=== PATIENT | female | born 1975 | race Caucasian/White ===

== ENCOUNTER → 2020-04-27 16:00 | Outpatient (CLI) | payer BC, SELFPAY | PROVIDERS: PCP Family Medicine; Visit Provider Nurse Practitioner Family | DX: Z20.822 Contact with and (suspected) exposure to COVID-19 (principal) | CPT/HCPCS: 87633; 87635; U0002 ==

== ENCOUNTER → 2021-01-28 | Outpatient (CLI) | payer BC, SELFPAY ==
[2021-02-02 13:19] LABS: HPV APTIMA, High Risk Negative (Negative)
== END | disposition home or self-care (01) ==
LOC: LABSPEC 10:45
PROVIDERS: PCP Family Medicine; Referring Provider Obstetrics & Gynecology; Visit Provider Obstetrics & Gynecology
DX: Z12.4 Encounter for screening for malignant neoplasm of cervix (principal); R35.0 Frequency of micturition
CPT/HCPCS: 87086; 87088; 87624; 88175; G0145

== ENCOUNTER 2021-02-23 11:14 | Outpatient (CLI) | payer BC, SELFPAY ==
--- NOTE | 2021-02-23 11:21 | BI_ITS ---
MAMMOGRAPHY - BILATERAL SCREENING REASON FOR EXAM: Female, 46 years old. Routine annual screening examination. PERTINENT HISTORY: Non-contributory. TECHNIQUE: Digital bilateral breast li (3D mammographic acquisition) in the CC and MLO projections. 2-D mediolateral oblique (MLO) and craniocaudad (CC) views of both breasts were obtained. CAD: Full Field Digital Mammography with Computer Added Detection was performed. COMPARISON: None. Baseline examination. FINDINGS: Breast Composition: The breasts are heterogeneously dense, which may obscure small masses. There is a 2.3 cm x 1.9 cm well-defined nodule in the slightly upper deep medial aspect of the left breast. I also suspect to small well-defined nodules in the deep upper lateral aspect of the left breast. Correlation with ultrasound is recommended. No other significant abnormalities are identified. BI/SCRN MAMM (CAD)W/LI BILAT IMPRESSION: Well-defined nodules in the left breast as described. Correlation with ultrasound is recommended. ASSESSMENT CATEGORY: BIRADS Category 0: Incomplete. Need additional imaging evaluation. A letter regarding these results will be sent to the patient by the facility within 30 days. Approximately 10% of breast cancers are not detected by mammography. A normal mammogram should not delay biopsy of a clinically suspicious abnormality. [id number] Electronically Signed: Jet Brown MD at 12:14 EST , Service support ,
== END 2021-02-23 23:59 | disposition short-term general hospital (02) ==
LOC: OPBI 11:18
PROVIDERS: PCP Family Medicine; Referring Provider Obstetrics & Gynecology; Visit Provider Obstetrics & Gynecology
DX: Z12.31 Encounter for screening mammogram for malignant neoplasm of breast (principal); N63.20 Unspecified lump in the left breast, unspecified quadrant
CPT/HCPCS: 77063; 77067

== ENCOUNTER 2021-02-25 14:54 | Outpatient (CLI) | payer BC, SELFPAY ==
--- NOTE | 2021-02-25 14:56 | US_ITS ---
STUDY: ULTRASOUND BREAST - LEFT REASON FOR EXAM: Female, 46 years old. Abnormal screening mammogram. TECHNIQUE: Axial and longitudinal images of the LEFT breast were performed with a high resolution ultrasound transducer. # OF IMAGES: [id number] COMPARISON: Comparison is made with prior mammogram dated 02/23/2021. FINDINGS: LEFT Breast: There is a 1.7 cm x 1.9 cm x 1 cm cyst at the 11 o''clock position of the breast. This also evidence of a 1.2 cm x 1.5 cm x 1 cm cyst at the 1 o''clock position of the breast. US/Breast Limited Unilateral IMPRESSION: The mammographic abnormality corresponds to cysts as described. ASSESSMENT CATEGORY: BIRADS Category 2: Benign. A letter regarding these results will be sent to the patient by the facility within 30 days. Electronically Signed: Jet Brown MD at 8:39 EST , Service support ,
== END 2021-02-25 23:59 | disposition short-term general hospital (02) ==
LOC: OPUS 14:55
PROVIDERS: PCP Family Medicine; Visit Provider Obstetrics & Gynecology
DX: N63.20 Unspecified lump in the left breast, unspecified quadrant (principal)
CPT/HCPCS: 76642

== ENCOUNTER 2021-03-16 15:48 | Outpatient (CLI) | payer BC, SELFPAY ==
--- NOTE | 2021-03-16 15:54 | US_ITS ---
STUDY: ULTRASOUND OF THE FEMALE PELVIS - COMPLETE REASON FOR EXAM: Female, 46 years old. menorrhagia TECHNIQUE: Transabdominal COMPARISON: None. FINDINGS: The uterus is anteverted and is in a midline position. The uterus measures 10.9 x 7.2 cm. There is a Nabothian cyst of the cervix. The endometrium measures 19 mm in thickness, and is hyperechoic. There is no demonstrated endometrial mass. Fibroid measures 11 mm. I.U.D. - The patient does not have an I.U.D. endocervical calcifications noted. The right ovary is visualized. The right ovary measures 2.8 x 1.9 cm. There is no right ovarian cyst or ovarian mass. There is no visualized right adnexal mass or complex lesion. There is normal arterial and normal venous vascularity. The left ovary is visualized. The left ovary measures 3.6 x 2.7 cm. Cyst measures 24 mm. No follow-up required. There is no visualized left adnexal mass or complex lesion. There is normal arterial and normal venous vascularity. There is no fluid in the cul-de-sac. Urinary bladder volume of 203 cc with urinary bladder debris. US/Transvaginal Non- IMPRESSION: There is a Nabothian cyst of the cervix. Debris in the urinary bladder can suggest urinary tract infection. Fibroid uterus. Electronically Signed: Maximo Saez MD at 20:37 EST ,
--- NOTE | 2021-03-16 15:54 | US_ITS ---
STUDY: ULTRASOUND OF THE FEMALE PELVIS - COMPLETE REASON FOR EXAM: Female, 46 years old. menorrhagia TECHNIQUE: Transabdominal COMPARISON: None. FINDINGS: The uterus is anteverted and is in a midline position. The uterus measures 10.9 x 7.2 cm. There is a Nabothian cyst of the cervix. The endometrium measures 19 mm in thickness, and is hyperechoic. There is no demonstrated endometrial mass. Fibroid measures 11 mm. I.U.D. - The patient does not have an I.U.D. endocervical calcifications noted. The right ovary is visualized. The right ovary measures 2.8 x 1.9 cm. There is no right ovarian cyst or ovarian mass. There is no visualized right adnexal mass or complex lesion. There is normal arterial and normal venous vascularity. The left ovary is visualized. The left ovary measures 3.6 x 2.7 cm. Cyst measures 24 mm. No follow-up required. There is no visualized left adnexal mass or complex lesion. There is normal arterial and normal venous vascularity. There is no fluid in the cul-de-sac. Urinary bladder volume of 203 cc with urinary bladder debris. US/Pelvic (Non ) IMPRESSION: There is a Nabothian cyst of the cervix. Debris in the urinary bladder can suggest urinary tract infection. Fibroid uterus. Electronically Signed: Maximo Saez MD at 20:37 EST ,
== END 2021-03-16 23:59 | disposition short-term general hospital (02) ==
LOC: US 15:50
PROVIDERS: PCP Family Medicine; Referring Provider Obstetrics & Gynecology; Visit Provider Obstetrics & Gynecology
DX: N92.0 Excessive and frequent menstruation with regular cycle (principal)
CPT/HCPCS: 76830; 76856